=== PATIENT | female | born 1930 | race Hispanic/Latino ===

== ENCOUNTER 2018-03-21 22:14 | Emergency (ER) | payer MEDICARE ==
[2018-03-21] MEDS ORDERED: ZOFRAN IV ONE (22:30)
[2018-03-21] MEDS ORDERED: NACL 0.9% 1000 ML 1,000 ML ONE (22:37)
[2018-03-21] MEDS ORDERED: NACL 0.9% 500 ML 500 ML IV ONE (22:41)
[2018-03-21] MEDS ORDERED: PEPCID IV ONE (22:42)
[2018-03-21] MEDS ORDERED: MORPHINE IV ONE (22:42)
--- NOTE | 2018-03-21 22:47 | Emergency Department Report ---
ED Abdominal Pain HPI - General Chief Complaint: Abdominal Pain Stated Complaint: N/V/BACK PAIN Time Seen by Provider: 03/21/18 22:28 Source: patient, EMS Mode of arrival: Stretcher Limitations: No Limitations - History of Present Illness Initial Comments: 87-year-old female with a past medical history of hypertension, heart murmur, and elevated cholesterol presents to the hospital complaining of abdominal pain, nausea, and vomiting that started 1 hour prior to arrival. Patient states she had dinner [facility] the [employer] and felt like she ate too much. But She Called she was having pain and vomiting. Pain is in the upper abdominal area, intermittently, and moderate in intensity. It radiates to the back. She denies chest pain, shortness of breath, hematemesis, fever, or dysuria. She denies previous abdominal surgeries. - Related Data Allergies Allergy/AdvReac Type Severity Reaction Status Date / Time Penicillins Allergy Hives Verified 03/21/18 22:21 ED Review of Systems ROS: Stated complaint: N/V/BACK PAIN Other details as noted in HPI Comment: All other systems reviewed and negative ED Past Medical Hx - Past Medical History Previous Medical History?: Yes Hx Hypertension: Yes Additional medical history: Heart murmer, high cholesterol - Surgical History Past Surgical History?: Yes Additional Surgical History: R hip replacement - Social History Smoking Status: Never Smoker Substance Use Type: None ED Physical Exam - General Limitations: No Limitations - Other Other exam information: General: No limitations, patient is alert in no acute distress Head exam: Atraumatic, normocephalic Eyes exam: Normal appearance, pupils equal reactive to light, extraocular movements intact ENT: Moist mucous membrane Neck exam: Normal inspection, full range of motion, no meningismus nontender Respiratory exam: Clear to auscultation bilateral, no wheezes, rales, crackles Cardiovascular: Normal rate and rhythm, normal heart sounds Abdomen: Soft, nondistended, epigastric tenderness, with normal bowel sounds, no rebound, or guarding. Intermittent dry heaves at the bedside Extremity: Full range of motion normal inspection no deformity Back: Normal Inspection, full range of motion, no tenderness Neurologic: Alert, oriented x3, cranial nerves intact, no motor or sensory defic it Psychiatric: normal affect, normal mood Skin: Warm, dry, intact ED Course Vital Signs 03/21/18 03/21/18 03/21/18 22:15 22:43 22:45 Temperature 98.0 F Pulse Rate 70 78 Respiratory 18 18 Rate Blood Pressure 146/80 Blood Pressure 146/80 [Right] O2 Sat by Pulse 98 100 Oximetry 03/21/18 03/21/18 03/21/18 23:01 23:15 23:31 Temperature Pulse Rate 79 81 80 Respiratory 15 11 L 15 Rate Blood Pressure Blood Pressure [Right] O2 Sat by Pulse 96 94 94 Oximetry 03/21/18 03/22/18 03/22/18 23:45 00:53 01:00 Temperature Pulse Rate 84 Respiratory 18 Rate Blood Pressure 143/81 140/70 Blood Pressure [Right] O2 Sat by Pulse 96 93 93 Oximetry 03/22/18 03/22/18 01:15 02:43 Temperature Pulse Rate Respiratory Rate Blood Pressure 133/74 154/77 Blood Pressure [Right] O2 Sat by Pulse 86 Oximetry - Consultations Consultation #1: 03/22/18 01:25 case d/w gen surgeon Dr Chin and ct reviewed. Rec transfer to hospital vascular thoracic surgery for possible esophageal lengthening procedure. Consultation #2: 03/22/18 02:06 case d/w Devang (initially paged at 01:13) thoracic attending electron beam welding machine operator Dr Chan who has accepted the patient for transfer to [place] direct admit. ED Medical Decision Making - Lab Data Result diagrams: 03/21/18 22:34 03/21/18 22:34 Lab Results 03/21/18 03/21/18 03/21/18 Range/Units 22:34 22:34 22:40 WBC 12.8 H (4.5-11.0) K/mm3 RBC 4.10 (3.65-5.03) M/mm3 Hgb 12.6 (10.1-14.3) gm/dl Hct 38.0 (30.3-42.9) % MCV 93 (79-97) fl MCH 31 (28-32) pg MCHC 33 (30-34) % RDW 13.9 (13.2-15.2) % Plt Count 353 (140-440) K/mm3 Lymph % (Auto) 7.1 L (13.4-35.0) % [place] % (Auto) 3.9 (0.0-7.3) % Eos % (Auto) 0.1 (0.0-4.3) % Baso % (Auto) 0.5 (0.0-1.8) % Lymph # 0.9 L (1.2-5.4) K/mm3 [place] # 0.5 (0.0-0.8) K/mm3 Eos # 0.0 (0.0-0.4) K/mm3 Baso # 0.1 (0.0-0.1) K/mm3 Seg Neutrophils % 88.4 H (40.0-70.0) % Seg Neutrophils # 11.4 H (1.8-7.7) K/mm3 Sodium 141 (137-145) mmol/L Potassium 4.1 (3.6-5.0) mmol/L Chloride 99.6 (98-107) mmol/L Carbon Dioxide 25 (22-30) mmol/L Anion Gap 21 mmol/L BUN 24 H (7-17) mg/dL Creatinine 1.0 (0.7-1.2) mg/dL Estimated GFR 52 ml/min BUN/Creatinine Ratio 24 % Glucose 183 H (65-100) mg/dL Calcium 9.6 (8.4-10.2) mg/dL Total Bilirubin 0.60 (0.1-1.2) mg/dL AST 25 (5-40) units/L ALT 18 (7-56) units/L Alkaline Phosphatase 99 (35-129) units/L Total Protein 6.7 (6.3-8.2) g/dL Albumin 4.5 (3.9-5) g/dL Albumin/Globulin Ratio 2.0 % Amylase 57 (27-131) units/L Lipase 39 (13-60) units/L - EKG Data -: EKG Interpreted by [facility] EKG shows normal: sinus rhythm, axis (qrs -34), QRS complexes (qrsd 108), ST-T waves (no stei) Rate: normal - Radiology Data Radiology results: report reviewed FINAL REPORT EXAM: CT ABDOMEN PELVIS W CON HISTORY: epigstric pain n,v COMPARISON: None available. TECHNIQUE: Contiguous axial images were obtained. Additional sagittal and coronal reformatted images were obtained. Administration of IV contrast given per institution protocol. Images submitted for interpretation. FINDINGS: Large hiatal hernia. 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 Prominent distention of the stomach. No wall thickening, fat stranding or free air. There narrowing of the distal stomach as it extends through the diaphragmatic hiatus. Findings are concerning for partial obstruction of the distal stomach related to the diaphragmatic hiatus. Otherwise, large and small bowel loops normal in caliber. Moderate diverticulosis of left colon. No diverticulitis. The appendix is normal in caliber. Mild linear atelectasis at the lung bases. Tiny calcified gallstones. No gross inflammatory changes the gallbladder. No biliary dilatation. Liver, spleen, pancreas are grossly unremarkable. No adrenal mass. No solid renal lesion. No hydronephrosis. Aorta and IVC normal in caliber. Moderate to severe calcified plaque along the aorta. Urinary bladder is unremarkable. Uterus is small in size. Ovaries are not well visualized. No free fluid or lymphadenopathy in the pelvic cavity. Prior right hip replacement. Lumbar vertebral body heights preserved. Grade 2 anterolisthesis of L5 on S1. Bilateral pars defects and facet changes at that level. IMPRESSION: Large hiatal hernia. 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 Prominent distention of the stomach. No wall thickening, fat stranding or free air. There narrowing of the distal stomach as it extends through the diaphragmatic hiatus. Findings are concerning for partial obstruction of the distal stomach related to the diaphragmatic hiatus. No other acute findings. - Medical Decision Making It is significant and symptomatic large try to hernia with possible partial gastric obstruction. Patient needs to go to a facility to have cardiothoracic surgery as recommended by our general surgeon on staff. Patient denies a known history of a hiatal hernia. - Differential Diagnosis gastritis, pancreatitis, hepatitis, food poisoning Critical Care Time: No Critical care attestation.: If time is entered above; I have spent that time in minutes in the direct care of this critically ill patient, excluding procedure time. ED Disposition Clinical Impression: Hiatal hernia, Partial gastric outlet obstruction Disposition: DC/TX-70 ANOTHER TYPE HLTHCARE Is pt being admited?: No Condition: Stable Referrals: ANTONI JUAREZ MD [Staff Physician] - 3-5 Days Time of Disposition: 02:14 (accepted by thoracic surgeon Devang)
[2018-03-21 22:57] LABS: Basophils # (Auto) 0.1 K/mm3 (0.0-0.1); Basophils % (Auto) 0.5 % (0.0-1.8); Eosinophils % (Auto) 0.1 % (0.0-4.3); Hemoglobin 12.6 gm/dl (10.1-14.3); Lymphocytes # (Auto) 0.9 K/mm3 (1.2-5.4); Lymphocytes % (Auto) 7.1 % (13.4-35.0); Mean Corpuscular HGB Conc 33 % (30-34); Mean Corpuscular Volume 93 fl (79-97); Monocytes # (Auto) 0.5 K/mm3 (0.0-0.8); Monocytes % (Auto) 3.9 % (0.0-7.3); Platelet Count 353 K/mm3 (140-440); Red Cell Distribution Width 13.9 % (13.2-15.2)
[2018-03-21 23:09] LABS: Albumin 4.5 g/dL (3.9-5); Calcium 9.6 mg/dL (8.4-10.2)
--- NOTE | 2018-03-22 00:31 | Cat Scan Report ---
FINAL REPORT EXAM: CT ABDOMEN PELVIS W CON HISTORY: epigstric pain n,v COMPARISON: None available. TECHNIQUE: Contiguous axial images were obtained. Additional sagittal and coronal reformatted images were obtained. Administration of IV contrast given per institution protocol. Images submitted for in terpretation. FINDINGS: Large hiatal hernia. 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 Prominent distention of the sto mach. No wall thickening, fat stranding or free air. There narrowing of the distal stomach as it exte nds through the diaphragmatic hiatus. Findings are concerning for partial obstruction of the distal s tomach related to the diaphragmatic hiatus. Otherwise, large and small bowel loops normal in caliber. Moderate diverticulosis of left colon. No diverticulitis. The appendix is normal in caliber. Mild linear atelectasis at the lung bases. Tiny calcified gallstones. No gross inflammatory changes t he gallbladder. No biliary dilatation. Liver, spleen, pancreas are grossly unremarkable. No adrenal m ass. No solid renal lesion. No hydronephrosis. Aorta and IVC normal in caliber. Moderate to severe ca lcified plaque along the aorta. Urinary bladder is unremarkable. Uterus is small in size. Ovaries are not well visualized. No free fluid or lymphadenopathy in the pelvic cavity. Prior right hip replacement. Lumbar vertebral body heights preserved. Grade 2 anterolisthesis of L5 o n S1. Bilateral pars defects and facet changes at that level. IMPRESSION: Large hiatal hernia. 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 Prominent distention of the sto mach. No wall thickening, fat stranding or free air. There narrowing of the distal stomach as it exte nds through the diaphragmatic hiatus. Findings are concerning for partial obstruction of the distal s tomach related to the diaphragmatic hiatus. No other acute findings.
[2018-03-22] MEDS ORDERED: LIDOCAINE VISCOUS 2% PO ONE (01:15)
[2018-03-22] MEDS ORDERED: MORPHINE IV ONE ×2 (01:24→02:00)
[2018-03-22 02:44] VITALS: BP 154/77
--- NOTE | 2018-03-22 02:49 | XRay Report ---
FINAL REPORT EXAM: XR ABDOMEN 1V AP HISTORY: s/p ng tube COMPARISON: CT abdomen pelvis from the same date. FINDINGS: AP view of the abdomen obtained. Distal tip of NG tube terminates within the large hiatal hernia. Amparo ear atelectasis at the lung bases. Excreted contrast in the renal pelves from earlier CT. IMPRESSION: Distal tip of the NG tube terminates within the large hiatal hernia.
--- NOTE | 2018-03-22 02:51 | XRay Report ---
FINAL REPORT EXAM: XR CHEST 1V AP HISTORY: s/p ng tube COMPARISON: CT of the abdomen pelvis from the same date. FINDINGS: Single frontal view of the chest obtained. There is a large hiatal hernia. Distal tip of the NG tube extends to the right lateral margin of the hiatal hernia. Cardiac silhouette is obscured. Linear atel ectasis at the lung bases. No pneumothorax. IMPRESSION: Large hiatal hernia. Distal tip of the NG tube appears are terminate within the hiatal hernia. Linear atelectasis at the lung bases.
== END 2018-03-22 03:24 | disposition other institution (70) ==
LOC: ED 22:14
DX: K44.9 Diaphragmatic hernia without obstruction or gangrene (principal); K94.29 Other complications of gastrostomy; I10 Essential (primary) hypertension; E78.00 Pure hypercholesterolemia, unspecified
CPT/HCPCS: 36415; 71045; 74018; 74177; 80053; 82150; 83690; 85025; 93005; 93010; 96361; 96374; 96375; 96376; 99285; J2270; J2405; J7030; Q9967